=== PATIENT | male | born 1965 ===

== ENCOUNTER 2020-12-05 16:10 | Inpatient (IN) | payer BC ==
[~2020-12-05] VITALS: Ht 185.4 cm; Wt 73.6 kg
[2020-12-05] MEDS ORDERED: SODIUM CHLORIDE 0.9% 1,000 ML IVB ONE (16:45)
[2020-12-05 17:03] LABS: Hematocrit 38.1 % (41.0-53.0); Hemoglobin 12.7 g/dL (13.5-17.5); Mean Corpuscular Hemoglobin 27.4 pg (28.0-32.0); Mean Corpuscular Hgb Conc. 33.3 g/dL (32.0-36.0); Mean Corpuscular Volume 82.2 fL (80.0-100.0); Red Blood Cells 4.63 10^6/uL (4.5-5.90); White Blood Cell 2.4 10^3/uL (4.4-10.8)
[2020-12-05 17:14] LABS: Basophils % (manual) 0 (0.0-2.0)
[2020-12-05 17:15] LABS: Blast Cells 0; Promyelocytes % 0; Reactive Lymphocytes 0
[2020-12-05 17:21] LABS: Albumin 3.6 g/dL (3.4-5.0); Anion Gap 4 (5-15); BUN/Creatinine Ratio 20.9; Blood Urea Nitrogen 19 mg/dL (7-18); Calcium 8.6 mg/dL (8.5-10.1); Carbon Dioxide 27 mmol/L (21-32); Chloride 111 mmol/L (98-107); GFR African American 112 mL/min; GFR Non-African American 92 mL/min; Glucose 95 mg/dL (74-106); Potassium 3.6 mmol/L (3.5-5.1); Sodium 142 mmol/L (136-145)
[2020-12-05 17:26] LABS: Alanine Aminotransferase 21 U/L (16-61); Alkaline Phosphatase 79 U/L (45-117); Aspartate Aminotransferase 15 U/L (15-37); Bilirubin, Total 0.5 mg/dL (0.2-1.0); Total Protein 6.4 g/dL (6.4-8.2)
[2020-12-05] MEDS ORDERED: SODIUM CHLORIDE 0.9% 1,000 ML IV ONE (17:45)
[2020-12-05 17:50] LABS: Band Neutrophils % (manual) 5; Eosinophils % (manual) 1 (0-7); Lymphocytes % (manual) 13 (10.0-50.0); Metamyelocytes % 1; Monocytes % (manual) 8 (0-12); Myelocytes % 1
[2020-12-05] MEDS ORDERED: metroNIDAZOLE 500MG/100ML 100 ML IV ONE (18:00)
[2020-12-05] MEDS ORDERED: cefTRIAXone 1GM/50ML D5W 50 ML IV ONE ×2 (18:00→18:51)
[2020-12-05] MEDS ORDERED: MORPHINE SULF INJ 2 MG/ML SYRINGE 1ML IV ONE (18:30)
[2020-12-05] MEDS ORDERED: ONDANSETRON HCL 4 MG/2 ML VIAL IV ONE (18:30)
[2020-12-05 18:59] LABS: Urine Bacteria NONE SEEN /hpf (None Seen); Urine Blood Negative /uL (Negative); Urine Hyaline Cast FEW /lpf (0 - 2); Urine Mucus FEW (None Seen); Urine Specific Gravity 1.018 (1.001-1.035); Urine WBC 1 /hpf (0 - 3)
[2020-12-05] MEDS ORDERED: ONDANSETRON HCL 4 MG/2 ML VIAL IV PRN ×2 (19:00→21:00)
[2020-12-05] MEDS ORDERED: NITROGLYCERIN 0.4 MG SL TAB SL PRN (19:00)
[2020-12-05] MEDS ORDERED: PANTOPRAZOLE 40 MG/10 ML VIAL INJ IV ONE (19:00)
[2020-12-05] MEDS ORDERED: MORPHINE SULF INJ 2 MG/ML SYRINGE 1ML IV PRN (19:00)
[2020-12-05] MEDS ORDERED: SUCCINYLCHOLINE CHLORIDE 20 MG/ML 10ML VIAL IV ONE (19:22)
[2020-12-05] MEDS ORDERED: fentaNYL CITRATE 5 ML ONE (19:24)
[2020-12-05] MEDS ORDERED: MIDAZOLAM HCL 2MG/2ML 2ml VIAL (1mg/ml) ONE (19:24)
[2020-12-05 19:27] LABS: INR 1.02 (0.9-1.15); Partial Thromboplastin Time 25.5 sec (23.0-31.2)
[2020-12-05] MEDS ORDERED: LIDOCAINE 2% (LOCAL ANESTH.) PF 5ml SDV ONE (19:27)
[2020-12-05] MEDS ORDERED: PROPOFOL 10 MG/ML 20 ML IV ONE (19:27)
[2020-12-05] MEDS ORDERED: ROCURONIUM 10MG/ML 10ML VIAL IV ONE (19:44)
[2020-12-05] MEDS ORDERED: HYDROmorphone HCL 2 MG/ML VL ONE ×2 (19:48→21:22)
[2020-12-05] MEDS ORDERED: POVIDONE IODINE 10 % TOPICAL OINT 30GM TOP ONE (20:22)
[2020-12-05] MEDS ORDERED: ONDANSETRON HCL 4 MG/2 ML VIAL ONE (20:33)
[2020-12-05] MEDS ORDERED: D5W/SOD CHL 0.45%/KCL 40MEQ 1,000 ML IV ONE (20:45)
[2020-12-05] MEDS ORDERED: HYDROmorphone HCL 2 MG/ML VL IV PRN (21:00)
[2020-12-05] MEDS: HYDROmorphone HCL 2 MG/ML VL IV PRN ×4 (21:23→21:54)
[2020-12-05] MEDS ORDERED: DEXTROSE (50%) 50ML SYRG IV SCH (21:45)
[2020-12-05] MEDS ORDERED: AMINO ACID INFUSION IN D10W 1,000 ML IV NR (21:45)
[2020-12-05] MEDS ORDERED: TPN PER PHARMACY 0 ML IV SCH (22:45)
[2020-12-05 23:00] VITALS: BP 123/57
[2020-12-05] MEDS: InsuLIN REG 1unit/0.01ml Soln (100units/ml) SC SCH (23:13)
[2020-12-05] MEDS: ACCU-CHEK COMFORT CURVE STRIP VI SCH (23:13)
[2020-12-05] MEDS: MORPHINE SULF INJ 2 MG/ML SYRINGE 1ML IV PRN (23:47)
[2020-12-06] MEDS: MORPHINE SULF INJ 2 MG/ML SYRINGE 1ML IV PRN ×6 (03:59→22:11)
[2020-12-06 04:40] VITALS: BP 126/82
[2020-12-06 05:31] LABS: Hematocrit 36.7 % (41.0-53.0); Hemoglobin 12.3 g/dL (13.5-17.5); Mean Corpuscular Hemoglobin 28.1 pg (28.0-32.0); Mean Corpuscular Hgb Conc. 33.5 g/dL (32.0-36.0); Mean Corpuscular Volume 83.7 fL (80.0-100.0); Red Blood Cells 4.39 10^6/uL (4.5-5.90); White Blood Cell 2.6 10^3/uL (4.4-10.8)
[2020-12-06 05:34] LABS: Basophils % (manual) 0 (0.0-2.0); Blast Cells 0; Metamyelocytes % 0; Myelocytes % 0; Promyelocytes % 0; Reactive Lymphocytes 0; Red Cell Distribution Width 20.4 % (11.8-14.3)
[2020-12-06 05:56] LABS: Potassium 4.5 mmol/L (3.5-5.1)
[2020-12-06] MEDS: InsuLIN REG 1unit/0.01ml Soln (100units/ml) SC SCH ×5 (05:59→23:56)
[2020-12-06] MEDS: ACCU-CHEK COMFORT CURVE STRIP VI SCH ×5 (05:59→23:57)
[2020-12-06] MEDS: metroNIDAZOLE 500MG/100ML 100 ML IV SCH ×3 (05:59→22:10)
[2020-12-06 06:06] LABS: Albumin 2.8 g/dL (3.4-5.0); Bilirubin, Total 0.7 mg/dL (0.2-1.0); Calcium 7.9 mg/dL (8.5-10.1); Magnesium 2.6 mg/dL (1.6-2.6); Phosphorus 2.6 mg/dL (2.5-4.90); Total Protein 5.9 g/dL (6.4-8.2)
[2020-12-06 06:50] LABS: Band Neutrophils % (manual) 48; Eosinophils % (manual) 1 (0-7); Lymphocytes % (manual) 9 (10.0-50.0); Monocytes % (manual) 16 (0-12)
[2020-12-06 08:45] VITALS: BP 136/75
[2020-12-06] MEDS: cefTRIAXone 1GM/50ML D5W 50 ML IV SCH (08:46)
[2020-12-06] MEDS: PANTOPRAZOLE 40 MG/10 ML VIAL INJ IV SCH ×2 (08:47→22:10)
[2020-12-06 13:00] VITALS: BP 119/67
[2020-12-06] MEDS ORDERED: LIDOCAINE 1% (LOCAL ANESTH.) PF 5ml SDV ID ONE (13:30)
[2020-12-06 17:00] VITALS: BP 120/77
[2020-12-06] MEDS ORDERED: PPN PER PHARMACY IV NR ×10 (20:00)
[2020-12-06 22:00] VITALS: BP 127/72
[2020-12-06] MEDS: SODIUM CHLOR 0.9% PF (SALINE LOCK) 10ML VIAL/SYR IV SCH (22:10)
[2020-12-07] MEDS: MORPHINE SULF INJ 2 MG/ML SYRINGE 1ML IV PRN ×5 (03:54→22:39)
[2020-12-07 05:00] VITALS: BP 128/86
[2020-12-07 05:16] LABS: Hematocrit 39.3 % (41.0-53.0); Hemoglobin 13.1 g/dL (13.5-17.5); Mean Corpuscular Hemoglobin 27.7 pg (28.0-32.0); Mean Corpuscular Hgb Conc. 33.4 g/dL (32.0-36.0); Red Blood Cells 4.74 10^6/uL (4.5-5.90); White Blood Cell 2.4 10^3/uL (4.4-10.8)
[2020-12-07 05:28] LABS: Basophils % (manual) 0 (0.0-2.0); Blast Cells 0; Metamyelocytes % 0; Myelocytes % 0; Promyelocytes % 0; Reactive Lymphocytes 0; Red Cell Distribution Width 21.3 % (11.8-14.3)
[2020-12-07 05:56] LABS: Albumin 2.9 g/dL (3.4-5.0); BUN/Creatinine Ratio 19.3; Calcium 8.1 mg/dL (8.5-10.1); Magnesium 2.2 mg/dL (1.6-2.6); Potassium 4.9 mmol/L (3.5-5.1)
[2020-12-07 05:59] LABS: Bilirubin, Total 0.6 mg/dL (0.2-1.0); Phosphorus 2.1 mg/dL (2.5-4.90); Total Protein 6.5 g/dL (6.4-8.2)
[2020-12-07] MEDS: InsuLIN REG 1unit/0.01ml Soln (100units/ml) SC SCH ×3 (06:00→18:00)
[2020-12-07] MEDS: metroNIDAZOLE 500MG/100ML 100 ML IV SCH ×3 (06:28→22:38)
[2020-12-07] MEDS: ACCU-CHEK COMFORT CURVE STRIP VI SCH ×3 (06:28→18:12)
[2020-12-07 06:41] LABS: Band Neutrophils % (manual) 24; Eosinophils % (manual) 4 (0-7); Lymphocytes % (manual) 13 (10.0-50.0)
[2020-12-07 06:45] LABS: Monocytes % (manual) 30 (0-12)
[2020-12-07] MEDS ORDERED: SODIUM CITR/CITRIC ACID ORAL SOLN 30 ML ONE (07:19)
[2020-12-07 08:38] VITALS: BP 119/82
[2020-12-07] MEDS: cefTRIAXone 1GM/50ML D5W 50 ML IV SCH (09:06)
[2020-12-07] MEDS: PANTOPRAZOLE 40 MG/10 ML VIAL INJ IV SCH ×2 (09:33→22:38)
[2020-12-07] MEDS: SODIUM CHLOR 0.9% PF (SALINE LOCK) 10ML VIAL/SYR IV SCH ×2 (09:34→22:38)
[2020-12-07 13:27] VITALS: BP 125/86
[2020-12-07] MEDS ORDERED: SODIUM PHOSPH 24MEQ(18MMOL) IN NS 100 ML IV ONE (14:00)
[2020-12-07 16:16] VITALS: BP 124/84
[2020-12-07] MEDS: TPN PER PHARMACY IV NR ×9 (22:12)
[2020-12-08 05:17] VITALS: BP 133/77
[2020-12-08 05:27] LABS: Hematocrit 41.7 % (41.0-53.0); Mean Corpuscular Hemoglobin 27.8 pg (28.0-32.0); Mean Corpuscular Hgb Conc. 33.6 g/dL (32.0-36.0); Mean Corpuscular Volume 82.7 fL (80.0-100.0); Red Blood Cells 5.04 10^6/uL (4.5-5.90); White Blood Cell 2.2 10^3/uL (4.4-10.8)
[2020-12-08 05:36] LABS: Red Cell Distribution Width 21.4 % (11.8-14.3)
[2020-12-08 05:38] LABS: Basophils % (manual) 0 (0.0-2.0); Blast Cells 0; Metamyelocytes % 0; Myelocytes % 0; Promyelocytes % 0; Reactive Lymphocytes 0
[2020-12-08 05:42] LABS: Potassium 4.2 mmol/L (3.5-5.1)
[2020-12-08 05:54] LABS: Albumin 2.4 g/dL (3.4-5.0); BUN/Creatinine Ratio 18.7; Bilirubin, Total 0.6 mg/dL (0.2-1.0); Calcium 8.5 mg/dL (8.5-10.1); Magnesium 2.2 mg/dL (1.6-2.6); Phosphorus 2.3 mg/dL (2.5-4.90); Total Protein 6.8 g/dL (6.4-8.2)
[2020-12-08] MEDS: metroNIDAZOLE 500MG/100ML 100 ML IV SCH ×3 (06:19→21:04)
[2020-12-08] MEDS: ACCU-CHEK COMFORT CURVE STRIP VI SCH ×4 (06:20→18:14)
[2020-12-08] MEDS: InsuLIN REG 1unit/0.01ml Soln (100units/ml) SC SCH ×4 (06:21→18:15)
[2020-12-08 09:00] VITALS: BP 127/78
[2020-12-08] MEDS: cefTRIAXone 1GM/50ML D5W 50 ML IV SCH (09:25)
[2020-12-08] MEDS: SODIUM CHLOR 0.9% PF (SALINE LOCK) 10ML VIAL/SYR IV SCH ×2 (09:26→21:10)
[2020-12-08] MEDS: PANTOPRAZOLE 40 MG/10 ML VIAL INJ IV SCH ×2 (09:26→21:04)
[2020-12-08 09:51] LABS: Band Neutrophils % (manual) 15; Lymphocytes % (manual) 8 (10.0-50.0)
[2020-12-08 09:52] LABS: Eosinophils % (manual) 2 (0-7); Monocytes % (manual) 33 (0-12)
[2020-12-08] MEDS ORDERED: SODIUM PHOSPH 24MEQ(18MMOL) IN NS 100 ML IV ONE (10:00)
[2020-12-08] MEDS: MORPHINE SULF INJ 2 MG/ML SYRINGE 1ML IV PRN ×2 (11:48→22:13)
[2020-12-08 12:51] VITALS: BP 112/74
[2020-12-08 16:40] VITALS: BP 122/76
[2020-12-08] MEDS: TPN PER PHARMACY IV NR ×9 (19:57)
[2020-12-08] MEDS ORDERED: TPN PER PHARMACY IV NR ×10 (20:00)
[2020-12-08 22:00] VITALS: BP 121/83
[2020-12-09] MEDS: MORPHINE SULF INJ 2 MG/ML SYRINGE 1ML IV PRN ×2 (03:05→22:17)
[2020-12-09 05:00] VITALS: BP 121/71
[2020-12-09 05:18] LABS: Hematocrit 39.3 % (41.0-53.0); Hemoglobin 13.1 g/dL (13.5-17.5); Mean Corpuscular Hemoglobin 27.3 pg (28.0-32.0); Mean Corpuscular Hgb Conc. 33.2 g/dL (32.0-36.0); Red Blood Cells 4.79 10^6/uL (4.5-5.90); White Blood Cell 2.6 10^3/uL (4.4-10.8)
[2020-12-09 05:25] LABS: Albumin 2.2 g/dL (3.4-5.0); Magnesium 2.3 mg/dL (1.6-2.6); Potassium 3.5 mmol/L (3.5-5.1)
[2020-12-09 05:28] LABS: BUN/Creatinine Ratio 26.3; Bilirubin, Total 0.4 mg/dL (0.2-1.0); Phosphorus 2.6 mg/dL (2.5-4.90); Total Protein 6.3 g/dL (6.4-8.2)
[2020-12-09 05:31] LABS: Red Cell Distribution Width 20.7 % (11.8-14.3)
[2020-12-09 05:32] LABS: Basophils % (manual) 0 (0.0-2.0); Blast Cells 0; Eosinophils % (manual) 0 (0-7); Promyelocytes % 0; Reactive Lymphocytes 0
[2020-12-09] MEDS: InsuLIN REG 1unit/0.01ml Soln (100units/ml) SC SCH ×4 (06:00→17:31)
[2020-12-09] MEDS: ACCU-CHEK COMFORT CURVE STRIP VI SCH ×4 (06:14→17:30)
[2020-12-09] MEDS: metroNIDAZOLE 500MG/100ML 100 ML IV SCH ×3 (06:14→22:17)
[2020-12-09] MEDS: cefTRIAXone 1GM/50ML D5W 50 ML IV SCH (08:42)
[2020-12-09 09:00] VITALS: BP 123/77
[2020-12-09] MEDS: PANTOPRAZOLE 40 MG/10 ML VIAL INJ IV SCH ×2 (09:54→22:17)
[2020-12-09] MEDS: SODIUM CHLOR 0.9% PF (SALINE LOCK) 10ML VIAL/SYR IV SCH ×2 (09:54→22:17)
[2020-12-09] MEDS ORDERED: POTASSIUM CHL 20MEQ/100ML 100 ML IV ONE (10:00)
[2020-12-09 10:43] LABS: Band Neutrophils % (manual) 15; Lymphocytes % (manual) 7 (10.0-50.0); Metamyelocytes % 2; Monocytes % (manual) 25 (0-12); Myelocytes % 1
[2020-12-09 13:00] VITALS: BP 121/77
[2020-12-09 17:00] VITALS: BP 128/75
[2020-12-09] MEDS ORDERED: TPN PER PHARMACY IV NR ×10 (20:00)
[2020-12-09 22:00] VITALS: BP 132/71
[2020-12-10] MEDS: ACCU-CHEK COMFORT CURVE STRIP VI SCH ×4 (00:05→18:00)
[2020-12-10 05:00] VITALS: BP 103/73
[2020-12-10 05:06] LABS: Basophils # (auto) 0.1 10 ^3/uL (0-0.2); Basophils % (auto) 1.4 % (0.0-2.0); Eosinophils # (auto) 0.1 10 ^3/uL (0-0.8); Eosinophils % (auto) 1.8 % (0.0-7.0); Hematocrit 38.2 % (41.0-53.0); Hemoglobin 12.7 g/dL (13.5-17.5); Lymphocytes # (auto) 0.3 10 ^3/uL (0.4-5.4); Mean Corpuscular Hemoglobin 27.5 pg (28.0-32.0); Mean Corpuscular Hgb Conc. 33.3 g/dL (32.0-36.0); Mean Corpuscular Volume 82.7 fL (80.0-100.0); Monocytes # (auto) 0.7 10 ^3/uL (0-1.3); Monocytes % (auto) 16.9 % (0.0-12.0); Neutrophils # (auto) 2.9 10 ^3/uL (1.6-8.6); Neutrophils % (auto) 72.9 % (37.0-80.0); Nucleated Red Blood Cells % 0.1 %; Red Blood Cells 4.62 10^6/uL (4.5-5.90); White Blood Cell 3.9 10^3/uL (4.4-10.8)
[2020-12-10 05:09] LABS: Red Cell Distribution Width 20.8 % (11.8-14.3)
[2020-12-10 05:39] LABS: Albumin 2.6 g/dL (3.4-5.0); BUN/Creatinine Ratio 27.5; Calcium 8.4 mg/dL (8.5-10.1); Magnesium 2.3 mg/dL (1.6-2.6); Potassium 4.1 mmol/L (3.5-5.1)
[2020-12-10 05:42] LABS: Bilirubin, Total 0.3 mg/dL (0.2-1.0); Phosphorus 2.7 mg/dL (2.5-4.90); Total Protein 6.4 g/dL (6.4-8.2)
[2020-12-10] MEDS: InsuLIN REG 1unit/0.01ml Soln (100units/ml) SC SCH ×4 (05:52→18:00)
[2020-12-10] MEDS: metroNIDAZOLE 500MG/100ML 100 ML IV SCH ×3 (07:04→21:38)
[2020-12-10 08:42] VITALS: BP 118/74
[2020-12-10] MEDS: cefTRIAXone 1GM/50ML D5W 50 ML IV SCH (09:44)
[2020-12-10] MEDS: SODIUM CHLOR 0.9% PF (SALINE LOCK) 10ML VIAL/SYR IV SCH ×2 (09:44→21:38)
[2020-12-10] MEDS: PANTOPRAZOLE 40 MG/10 ML VIAL INJ IV SCH ×2 (09:44→21:38)
[2020-12-10] MEDS ORDERED: GASTROGRAFIN 120 ML SOL ONE (10:05)
[2020-12-10] MEDS: MORPHINE SULF INJ 2 MG/ML SYRINGE 1ML IV PRN (12:37)
[2020-12-10 13:03] VITALS: BP 116/89
[2020-12-10 17:06] VITALS: BP 116/74
[2020-12-10] MEDS ORDERED: TPN PER PHARMACY IV NR ×9 (20:00)
[2020-12-10 22:07] VITALS: BP 112/73
[2020-12-11 05:09] VITALS: BP 123/73
[2020-12-11 05:26] LABS: Albumin 2.5 g/dL (3.4-5.0); BUN/Creatinine Ratio 27.1; Calcium 7.9 mg/dL (8.5-10.1); Potassium 3.4 mmol/L (3.5-5.1)
[2020-12-11 05:29] LABS: Bilirubin, Total 0.3 mg/dL (0.2-1.0); Total Protein 6.1 g/dL (6.4-8.2)
[2020-12-11] MEDS: InsuLIN REG 1unit/0.01ml Soln (100units/ml) SC SCH ×2 (06:00)
[2020-12-11] MEDS: metroNIDAZOLE 500MG/100ML 100 ML IV SCH ×3 (06:37→21:51)
[2020-12-11] MEDS: ACCU-CHEK COMFORT CURVE STRIP VI SCH ×2 (06:38)
[2020-12-11 06:41] LABS: Basophils # (auto) 0.1 10 ^3/uL (0-0.2); Basophils % (auto) 1.2 % (0.0-2.0); Eosinophils # (auto) 0.1 10 ^3/uL (0-0.8); Eosinophils % (auto) 1.5 % (0.0-7.0); Hematocrit 36.9 % (41.0-53.0); Hemoglobin 12.4 g/dL (13.5-17.5); Lymphocytes # (auto) 0.3 10 ^3/uL (0.4-5.4); Mean Corpuscular Hemoglobin 27.7 pg (28.0-32.0); Mean Corpuscular Hgb Conc. 33.7 g/dL (32.0-36.0); Mean Corpuscular Volume 82.3 fL (80.0-100.0); Monocytes # (auto) 0.8 10 ^3/uL (0-1.3); Monocytes % (auto) 13.6 % (0.0-12.0); Neutrophils # (auto) 4.4 10 ^3/uL (1.6-8.6); Neutrophils % (auto) 77.7 % (37.0-80.0); Red Blood Cells 4.48 10^6/uL (4.5-5.90); White Blood Cell 5.7 10^3/uL (4.4-10.8)
[2020-12-11 06:53] LABS: Red Cell Distribution Width 20.9 % (11.8-14.3)
[2020-12-11] MEDS: MORPHINE SULF INJ 2 MG/ML SYRINGE 1ML IV PRN (08:24)
[2020-12-11] MEDS: PANTOPRAZOLE 40 MG/10 ML VIAL INJ IV SCH ×2 (08:25→21:51)
[2020-12-11] MEDS: SODIUM CHLOR 0.9% PF (SALINE LOCK) 10ML VIAL/SYR IV SCH ×2 (08:25→21:52)
[2020-12-11] MEDS: cefTRIAXone 1GM/50ML D5W 50 ML IV SCH (08:25)
[2020-12-11 09:00] VITALS: BP 107/79
[2020-12-11] MEDS ORDERED: MORPHINE SULF INJ 2 MG/ML SYRINGE 1ML IV PRN (10:45)
[2020-12-11] MEDS ORDERED: POTASSIUM CHL 20 Meq TABLET PO ONE (10:45)
[2020-12-11] MEDS ORDERED: POTASSIUM CHL 20MEQ/100ML 100 ML IV ONE (11:00)
[2020-12-11 12:40] VITALS: BP 113/69
[2020-12-11 17:14] VITALS: BP 132/75
[2020-12-11] MEDS ORDERED: TPN PER PHARMACY IV NR ×12 (20:00)
[2020-12-11 22:09] VITALS: BP 110/70
[2020-12-12 05:19] VITALS: BP 120/74
[2020-12-12] MEDS: metroNIDAZOLE 500MG/100ML 100 ML IV SCH (06:27)
[2020-12-12 07:07] LABS: Basophils # (auto) 0.1 10 ^3/uL (0-0.2); Basophils % (auto) 1.4 % (0.0-2.0); Eosinophils # (auto) 0.1 10 ^3/uL (0-0.8); Eosinophils % (auto) 1.1 % (0.0-7.0); Hematocrit 37.7 % (41.0-53.0); Hemoglobin 12.5 g/dL (13.5-17.5); Lymphocytes # (auto) 0.5 10 ^3/uL (0.4-5.4); Lymphocytes % (auto) 7.3 % (10.0-50.0); Mean Corpuscular Hemoglobin 27.4 pg (28.0-32.0); Mean Corpuscular Hgb Conc. 33.3 g/dL (32.0-36.0); Mean Corpuscular Volume 82.3 fL (80.0-100.0); Neutrophils # (auto) 5.7 10 ^3/uL (1.6-8.6); Neutrophils % (auto) 77.2 % (37.0-80.0); Nucleated Red Blood Cells % 0.1 %; Red Blood Cells 4.58 10^6/uL (4.5-5.90); White Blood Cell 7.4 10^3/uL (4.4-10.8)
[2020-12-12 07:25] LABS: Red Cell Distribution Width 20.9 % (11.8-14.3)
[2020-12-12 07:28] LABS: BUN/Creatinine Ratio 23.5; Calcium 8.4 mg/dL (8.5-10.1)
[2020-12-12 09:00] VITALS: BP 123/69
[2020-12-12] MEDS: cefTRIAXone 1GM/50ML D5W 50 ML IV SCH (09:00)
[2020-12-12] MEDS: PANTOPRAZOLE 40 MG/10 ML VIAL INJ IV SCH (10:00)
[2020-12-12 10:56] VITALS: BP 123/67
== END 2020-12-12 12:00 | disposition home or self-care (01) | DRG 326 ==
LOC: EDBD 16:10 → ER 16:10 → TELE 18:58 → TELE-CENTR 22:46 → CENTRAL 12-11 11:35
PROVIDERS: ADMIT Nurse Practitioner Acute Care; ATTEND Internal Medicine
PROC: 0DQ60ZZ Repair Stomach, Open Approach (ICD-10-PCS; 2020-12-05)
PROC: 3E1M38Z Irrigation of Peritoneal Cavity using Irrigating Substance, Percutaneous Approach (ICD-10-PCS; 2020-12-05)
PROC: 0DB60ZX Excision of Stomach, Open Approach, Diagnostic (ICD-10-PCS; principal; 2020-12-05 19:21)
DX: K25.5 Chronic or unspecified gastric ulcer with perforation (principal); N17.0 Acute kidney failure with tubular necrosis; C83.30 Diffuse large B-cell lymphoma, unspecified site; E44.0 Moderate protein-calorie malnutrition; E87.1 Hypo-osmolality and hyponatremia; Z20.822 Contact with and (suspected) exposure to COVID-19; D63.8 Anemia in other chronic diseases classified elsewhere; D70.1 Agranulocytosis secondary to cancer chemotherapy; Z68.22 Body mass index [BMI] 22.0-22.9, adult; F12.90 Cannabis use, unspecified, uncomplicated; F17.200 Nicotine dependence, unspecified, uncomplicated; I12.9 Hypertensive chronic kidney disease with stage 1 through stage 4 chronic kidney disease, or unspecified chronic kidney disease; N18.9 Chronic kidney disease, unspecified; T45.1X5A Adverse effect of antineoplastic and immunosuppressive drugs, initial encounter; Z80.3 Family history of malignant neoplasm of breast; Z82.49 Family history of ischemic heart disease and other diseases of the circulatory system
CPT/HCPCS: 36415; 36569; 71045; 74176; 74245; 80048; 80053; 81001; 82040; 82150; 82962; 83690; 83735; 84100; 84443; 84478; 84484; 85007; 85025; 85027; 85610; 85730; 86850; 86900; 86901; 87070; 87075; 87205; 87426; 93005; 96361; 96365; 97110; 97116; 97163; 97530; 99291; C9113; G0378; J0330; J0696; J1815; J2001; J2250; J2405; J2704; J3480; J3490; J7131